=== PATIENT | male | born 1950 | race Caucasian/White ===

== ENCOUNTER → 2017-02-04 | Outpatient (CLI) | payer OTHER ==
[~2017-02-04] MED LIST: ASPI81TA57 PO; BNC/20125 PO; LORA10TA5 PO; MULTTAB58 PO
[2017-02-04 13:46] LABS: BASO % 1.6 %; BASO ABS # 0.09 K/uL (0-0.2); COMPLETE YES; EOS % 5.8 %; HEMATOCRIT 40.2 % (42-52); IG% 0.2 %; LYMPH % 31.4 %; LYMPH ABS # 1.79 K/uL (1.2-3.4); MEAN CELL VOLUME 92.8 fL (80-100); MEAN CORPUSCULAR HEMOGLOBIN 32.1 pg (25-34); MEAN CORPUSCULAR HGB CONC 34.6 g/dl (32-36); MEAN PLATELET VOLUME 10.3 fL (7.4-10.4); MONO % 10.7 %; NEUT % 50.3 %; PLATELET COUNT 167 K/uL (130-400); RED BLOOD COUNT 4.33 M/uL (4.7-6.1)
[2017-02-04 14:05] LABS: ALB/GLOB RATIO 1.2 (0.9-2); ALKALINE PHOSPHATASE 89 U/L (45-117); AST/SGOT 35 U/L (15-37); BLOOD UREA NITROGEN 16 mg/dl (7-18); BUN/CREATININE RATIO 19.4 (10-20); CALCIUM 9.1 mg/dl (8.5-10.1); CARBON DIOXIDE 30 mmol/L (21-32); CHLORIDE 110 mmol/L (98-107); CHOLESTEROL 169 mg/dl (0-200); CREATININE 0.85 mg/dl (0.60-1.40); GLUCOSE 106 mg/dl (70-99); POTASSIUM 4.6 mmol/L (3.5-5.1); SODIUM 143 mmol/L (136-145); TRIGLYCERIDES 72 mg/dl (0-150); URIC ACID 5.4 mg/dl (2.6-7.2); VERY LOW DENSITY LIPOPROT CALC 14 mg/dl
[2017-02-04 14:14] LABS: ALT/SGPT 42 U/L (12-78); CHOLESTEROL/HDL RATIO 3.1; HDL CHOLESTEROL 54 mg/dl; LDL CHOLESTEROL CALCULATED 101 mg/dl; PROSTATE SPECIFIC ANTIGEN 0.638 ng/ml (0.000-4.000); TOTAL IRON BINDING CAPACITY 302 mcg/dl (250-450)
[2017-02-04 14:15] LABS: ESTIMATED AVERAGE GLUCOSE 108 mg/dl; HA1C FLAG Normal (Normal)
== END | disposition home or self-care (01) ==
LOC: C.LABBC 09:33
PROVIDERS: ATTEND Family Medicine
DX: R73.09 Other abnormal glucose (principal); E55.9 Vitamin D deficiency, unspecified; D51.9 Vitamin B12 deficiency anemia, unspecified; E78.9 Disorder of lipoprotein metabolism, unspecified; N40.0 Benign prostatic hyperplasia without lower urinary tract symptoms; R53.83 Other fatigue

== ENCOUNTER → 2017-09-03 | Outpatient (CLI) | payer OTHER ==
[~2017-09-03] MED LIST changes: -LORA10TA5 PO; +LORA10TA6 PO
--- NOTE | 2017-09-03 13:13 | DIAGNOSTIC IMAGING REPORT ---
ABDOMEN ULTRASOUND FOR HERNIA CLINICAL HISTORY: RIGHT INGUINAL HERNIA COMPARISON STUDY: Abdominal ultrasound 12/26/2014. FINDINGS: No significant change in the small fat-containing reducible right inguinal hernia. This measures approximate 1.8 cm in size. No fluid collections or masses within the right groin. IMPRESSION: No significant change in the small fat-containing reducible right inguinal hernia. Electronically signed by: Dayo Gil M.D. 09/03/2017 1:11 PM Dictated Date/Time: 09/03/2017 1:10 PM
== END | disposition home or self-care (01) ==
LOC: C.ULTR 12:11
PROVIDERS: ATTEND Family Medicine
DX: K40.90 Unilateral inguinal hernia, without obstruction or gangrene, not specified as recurrent (principal)

== ENCOUNTER → 2018-02-23 | Outpatient (CLI) | payer OTHER ==
[2018-02-23 17:08] LABS: BASO % 0.8 %; BASO ABS # 0.05 K/uL (0-0.2); EOS % 2.9 %; EOS ABS # 0.19 K/uL (0-0.5); HEMATOCRIT 42.7 % (42-52); HEMOGLOBIN 14.6 g/dL (14.0-18.0); IG# 0.01 K/uL (0.00-0.02); LYMPH % 24.5 %; LYMPH ABS # 1.63 K/uL (1.2-3.4); MEAN CELL VOLUME 93.2 fL (80-100); MEAN CORPUSCULAR HEMOGLOBIN 31.9 pg (25-34); MEAN CORPUSCULAR HGB CONC 34.2 g/dl (32-36); MONO % 10.1 %; MONO ABS # 0.67 K/uL (0.11-0.59); NEUT % 61.5 %; NEUT ABS # 4.09 K/uL (1.4-6.5); PLATELET COUNT 180 K/uL (130-400); RED CELL DISTRIBUTION WIDTH CV 13.6 % (11.5-14.5); RED CELL DISTRIBUTION WIDTH SD 46.2 fL (36.4-46.3); WHITE BLOOD COUNT 6.64 K/uL (4.8-10.8)
[2018-02-23 18:53] LABS: ALBUMIN 3.7 gm/dl (3.4-5.0); ALKALINE PHOSPHATASE 104 U/L (45-117); ALT/SGPT 43 U/L (12-78); AST/SGOT 34 U/L (15-37); BLOOD UREA NITROGEN 16 mg/dl (7-18); CALCIUM 9.3 mg/dl (8.5-10.1); CARBON DIOXIDE 26 mmol/L (21-32); CHOLESTEROL 174 mg/dl (0-200); CREATININE 0.79 mg/dl (0.60-1.40); GLUCOSE 106 mg/dl (70-99); LDL CHOLESTEROL CALCULATED 103 mg/dl; SODIUM 141 mmol/L (136-145); TOTAL PROTEIN 6.9 gm/dl (6.4-8.2); TRANSFERRIN 252 mg/dl (200-360); URIC ACID 4.9 mg/dl (2.6-7.2)
[2018-02-24 06:16] LABS: HEMOGLOBIN A1C 5.3 % (4.5-5.6)
== END | disposition home or self-care (01) ==
LOC: C.LABBC 13:05
PROVIDERS: ATTEND Family Medicine
DX: E88.81 Metabolic syndrome and other insulin resistance (principal); E55.9 Vitamin D deficiency, unspecified; D51.9 Vitamin B12 deficiency anemia, unspecified; E78.9 Disorder of lipoprotein metabolism, unspecified; R53.83 Other fatigue